=== PATIENT | female | born 2000 | race Hispanic/Latino ===

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

== ENCOUNTER 2019-03-15 07:32 | Emergency (ER) | payer OTHER, SELFPAY ==
[2019-03-15] MEDS ORDERED: Ketorolac Tromethamine 30 MG/ML VIAL ONE (09:00)
[2019-03-15] MEDS ORDERED: cefTRIAXone\\ROCEPHIN 1 GM VIAL ONE (09:00)
[2019-03-15] MEDS ORDERED: Ciprofloxacin HCL/Dexameth Otic Drops 7.5 ml Bottle ONE (09:38)
== END 2019-03-15 10:18 | disposition home or self-care (01) ==
LOC: ERS 07:32
DX: H60.91 Unspecified otitis externa, right ear (principal); H66.93 Otitis media, unspecified, bilateral; E11.9 Type 2 diabetes mellitus without complications; Z79.84 Long term (current) use of oral hypoglycemic drugs
CPT/HCPCS: 96361; 96365; 96375; J0696; J1885

== ENCOUNTER 2019-03-17 16:59 | Emergency (ER) | payer SELFPAY | END 2019-03-17 18:15 | disposition home or self-care (01) | LOC: ERS 16:59 | DX: H60.503 Unspecified acute noninfective otitis externa, bilateral (principal) | CPT/HCPCS: 99282 ==